=== PATIENT | male | born 1980 | race Caucasian/White ===

== ENCOUNTER 2016-06-23 19:39 | Emergency (ER) | payer MEDICAID ==
[~2016-06-23] VITALS: Ht 185.4 cm; Wt 81.6 kg
[2016-06-23 20:58] LABS: Basophils # (auto) 0 uL; Basophils % (auto) 0.4 % (0.0-2.0); Eosinophils # (auto) 0 uL; Eosinophils % (auto) 0.3 % (0.0-7.0); Hematocrit 41.4 % (41.0-53.0); Hemoglobin 14.1 g/dL (13.5-17.5); Lymphocytes # (auto) 1.9 uL; Lymphocytes % (auto) 19.8 % (10.0-50.0); Mean Corpuscular Hemoglobin 30.1 pg (28.0-32.0); Mean Corpuscular Volume 88.4 fL (80.0-100.0); Mean Platelet Volume 7.9 fL (7.4-10.4); Monocytes # (auto) 0.9 uL; Monocytes % (auto) 9.1 % (0.0-12.0); Neutrophils # (auto) 6.6 uL; Neutrophils % (auto) 70.4 % (37.0-80.0); Platelet Count (auto) 268 10^3/uL (140-450); Red Cell Distribution Width 12.8 % (11.6-16.0); White Blood Cell 9.4 10^3/uL (4.4-10.8)
[2016-06-23 21:19] LABS: Albumin 4.1 g/dL (3.4-5.0); BUN/Creatinine Ratio 25.5; Bilirubin, Total 1.3 mg/dL (0.2-1.0); Calcium 9.4 mg/dL (8.5-10.1); Potassium 3.2 mmol/L (3.5-5.1); Total Protein 8.1 g/dL (6.4-8.2)
[2016-06-24] MEDS ORDERED: TETANUS-DIPTH-ACEL PERTUSSIS 0.5ML SYRG IM ONE (05:15)
[2016-06-24] MEDS ORDERED: SULFAMETHOX W/TRIMETH(800/160MG) DS TAB PO ONE (05:15)
[2016-06-24 05:59] VITALS: BP 136/76
[2016-06-24] MEDS ORDERED: ONDANSETRON HCL 4 MG/2 ML VIAL ONE (08:35)
== END 2016-06-24 08:20 | disposition home or self-care (01) ==
LOC: ER 19:53
DX: L03.115 Cellulitis of right lower limb (principal); S90.414A Abrasion, right lesser toe(s), initial encounter; X58.XXXA Exposure to other specified factors, initial encounter; Y93.89 Activity, other specified; Y99.8 Other external cause status; Y92.89 Other specified places as the place of occurrence of the external cause
CPT/HCPCS: 36415; 51702; 73502; 73610; 73620; 80053; 85025; 87040; 90471; 90715; 94761; 99285; J2405; J7030

== ENCOUNTER 2016-11-26 10:05 | Emergency (ER) | payer MEDICAID ==
[~2016-11-26] VITALS: Ht 182.9 cm; Wt 90.7 kg
[2016-11-26 10:18] VITALS: BP 117/67
[2016-11-26 11:43] LABS: Basophils # (auto) 0.1 uL; Basophils % (auto) 1.3 % (0.0-2.0); CONDITION Y; Eosinophils # (auto) 0.1 uL; Eosinophils % (auto) 1.4 % (0.0-7.0); Hematocrit 39.1 % (41.0-53.0); Hemoglobin 13.7 g/dL (13.5-17.5); Lymphocytes # (auto) 1.8 uL; Lymphocytes % (auto) 22.8 % (10.0-50.0); Mean Corpuscular Hemoglobin 31.4 pg (28.0-32.0); Mean Corpuscular Hgb Conc. 35.1 g/dL (32.0-36.0); Mean Corpuscular Volume 89.5 fL (80.0-100.0); Mean Platelet Volume 8.5 fL (7.4-10.4); Monocytes # (auto) 0.7 uL; Monocytes % (auto) 9.6 % (0.0-12.0); Neutrophils % (auto) 64.9 % (37.0-80.0); Platelet Count (auto) 229 10^3/uL (140-450); Red Cell Distribution Width 12.4 % (11.6-16.0); White Blood Cell 7.7 10^3/uL (4.4-10.8)
[2016-11-26 12:08] LABS: Albumin 3.5 g/dL (3.4-5.0); BUN/Creatinine Ratio 16.9; Calcium 8.8 mg/dL (8.5-10.1); Potassium 3.2 mmol/L (3.5-5.1); Total Protein 7.5 g/dL (6.4-8.2)
== END 2016-11-26 16:08 | disposition left against medical advice (07) ==
LOC: ER 10:14
DX: S91.301A Unspecified open wound, right foot, initial encounter (principal); Z53.21 Procedure and treatment not carried out due to patient leaving prior to being seen by health care provider; X58.XXXA Exposure to other specified factors, initial encounter; Y93.89 Activity, other specified; Y92.89 Other specified places as the place of occurrence of the external cause; Y99.8 Other external cause status
CPT/HCPCS: 36415; 73110; 73630; 80053; 85025

== ENCOUNTER 2016-11-26 22:17 | Inpatient (IN) | payer MEDICAID ==
[~2016-11-26] VITALS: Ht 185.4 cm; Wt 96.7 kg
[2016-11-27] MEDS ORDERED: SODIUM CHLORIDE 0.9% 1,000 ML IV ONE (05:05)
[2016-11-27] MEDS ORDERED: cefTRIAXone 1GM/50ML D5W 50 ML IV ONE (05:15)
[2016-11-27] MEDS ORDERED: VANCOMYCIN 1GM/250ML D5W 250 ML IV ONE (05:15)
[2016-11-27 06:35] LABS: INR 0.94 (0.9-1.15); Partial Thromboplastin Time 27.4 sec (22.64-33.71); Prothrombin Time 10.2 sec (9.37-12.3)
[2016-11-27 08:54] LABS: Basophils # (auto) 0 uL; Basophils % (auto) 0.5 % (0.0-2.0); CONDITION Y; Eosinophils # (auto) 0.2 uL; Eosinophils % (auto) 2.7 % (0.0-7.0); Hemoglobin 13.1 g/dL (13.5-17.5); Lymphocytes % (auto) 23.7 % (10.0-50.0); Mean Corpuscular Hemoglobin 31.1 pg (28.0-32.0); Mean Corpuscular Hgb Conc. 34.5 g/dL (32.0-36.0); Mean Platelet Volume 9.7 fL (7.4-10.4); Monocytes # (auto) 0.7 uL; Monocytes % (auto) 8.9 % (0.0-12.0); Neutrophils # (auto) 5.3 uL; Neutrophils % (auto) 64.2 % (37.0-80.0); Platelet Count (auto) 220 10^3/uL (140-450); Red Cell Distribution Width 12.9 % (11.6-16.0); White Blood Cell 8.3 10^3/uL (4.4-10.8)
[2016-11-27 08:59] LABS: Urine Bilirubin Negative (Negative); Urine Blood Negative /uL (Negative); Urine Color Yellow (Yellow); Urine Glucose Normal (Normal); Urine Ketone Negative (Negative); Urine Mucus FEW (None Seen); Urine Nitrite Negative (Negative); Urine RBC <1 /hpf (0 - 3); Urine Squamous Epithelial Cell FEW /hpf (<5); Urine Urobilinogen Normal (Negative)
[2016-11-27 09:17] LABS: Albumin 3.3 g/dL (3.4-5.0); BUN/Creatinine Ratio 19.2; Bilirubin, Total 0.3 mg/dL (0.2-1.0); Calcium 8.6 mg/dL (8.5-10.1); Potassium 3.5 mmol/L (3.5-5.1)
[2016-11-27] MEDS ORDERED: MORPHINE SULF INJ 2 MG/ML SYRINGE 1ML IV PRN (10:15)
[2016-11-27] MEDS ORDERED: ACETAMINOPHEN 500 MG TAB PO PRN (10:15)
[2016-11-27] MEDS ORDERED: LORazepam 0.5 MG TAB PO PRN (10:15)
[2016-11-27] MEDS ORDERED: VANCOMYCIN PER PHARMACY 0 MG IV SCH (10:15)
[2016-11-27] MEDS ORDERED: LACTULOSE 20Gm/30ML SOLN PO PRN (10:15)
[2016-11-27] MEDS ORDERED: NITROGLYCERIN 0.4 MG SL TAB SL PRN (10:15)
[2016-11-27] MEDS ORDERED: PIPERACILLIN-TAZOB 3.375GM 100 ML IV ONE (10:15)
[2016-11-27] MEDS: FAMOTIDINE 20 MG TAB PO SCH ×2 (10:33→22:40)
[2016-11-27] MEDS: SODIUM CHLORIDE 0.9% 1,000 ML IV SCH ×2 (10:33→20:06)
[2016-11-27] MEDS: ENOXAPARIN SOD 40 MG/0.4 ML SYRINGE SC SCH (10:33)
[2016-11-27 11:42] VITALS: BP 115/70
[2016-11-27] MEDS: MORPHINE SULFATE 4 MG/ML SYRG IV PRN (12:59)
[2016-11-27 16:31] VITALS: BP 148/78
[2016-11-27] MEDS: PIPERACILLIN-TAZOB 3.375GM 100 ML IV SCH ×2 (16:46→22:40)
[2016-11-27] MEDS: VANCOMYCIN 1,250 MG in D5W 5% 250 ML IV SCH (19:00)
[2016-11-27 22:00] VITALS: BP 117/68
[2016-11-28] MEDS: PIPERACILLIN-TAZOB 3.375GM 100 ML IV SCH ×4 (03:35→22:26)
[2016-11-28] MEDS: SODIUM CHLORIDE 0.9% 1,000 ML IV SCH ×2 (04:04→16:06)
[2016-11-28 05:00] VITALS: BP 117/64
[2016-11-28 05:53] LABS: Basophils # (auto) 0.1 uL; Basophils % (auto) 0.9 % (0.0-2.0); CONDITION Y; Eosinophils # (auto) 0.2 uL; Eosinophils % (auto) 2.5 % (0.0-7.0); Hematocrit 37.9 % (41.0-53.0); Lymphocytes # (auto) 1.6 uL; Lymphocytes % (auto) 23.8 % (10.0-50.0); Mean Corpuscular Hemoglobin 31.4 pg (28.0-32.0); Mean Corpuscular Hgb Conc. 34.5 g/dL (32.0-36.0); Mean Platelet Volume 8.8 fL (7.4-10.4); Monocytes # (auto) 0.5 uL; Monocytes % (auto) 8.4 % (0.0-12.0); Neutrophils # (auto) 4.2 uL; Neutrophils % (auto) 64.4 % (37.0-80.0); Platelet Count (auto) 230 10^3/uL (140-450); White Blood Cell 6.6 10^3/uL (4.4-10.8)
[2016-11-28 06:22] LABS: Potassium 3.6 mmol/L (3.5-5.1)
[2016-11-28 06:27] LABS: Albumin 2.8 g/dL (3.4-5.0); BUN/Creatinine Ratio 15.4; Calcium 8.4 mg/dL (8.5-10.1)
[2016-11-28 06:29] LABS: Bilirubin, Total 0.3 mg/dL (0.2-1.0)
[2016-11-28] MEDS: VANCOMYCIN 1,250 MG in D5W 5% 250 ML IV SCH ×2 (06:51→18:44)
[2016-11-28 09:00] VITALS: BP 147/85
[2016-11-28] MEDS ORDERED: ROPIVACAINE 0.5% (5MG/ML) 20ML AMPULE IJ ONE (09:43)
[2016-11-28] MEDS ORDERED: ceFAZolin 1GM VL ONE (09:43)
[2016-11-28] MEDS ORDERED: BUPIVACAINE 0.75% INJ 10ML MPV SDV IJ ONE (09:43)
[2016-11-28] MEDS: FAMOTIDINE 20 MG TAB PO SCH ×3 (10:00→23:23)
[2016-11-28] MEDS: ENOXAPARIN SOD 40 MG/0.4 ML SYRINGE SC SCH (10:00)
[2016-11-28] MEDS ORDERED: fentaNYL CITRATE 100 MCG/2 ML VL ONE (10:08)
[2016-11-28] MEDS ORDERED: MIDAZOLAM HCL 1MG/1ML-2 ML VIAL ONE (10:08)
[2016-11-28] MEDS ORDERED: DEXAMETHASONE SOD PHOS 10MG/1ML VIAL INJ ONE (10:09)
[2016-11-28] MEDS ORDERED: PROPOFOL 10 MG/ML 20 ML IV ONE (10:09)
[2016-11-28 13:00] VITALS: BP 128/70
[2016-11-28] MEDS: MORPHINE SULFATE 4 MG/ML SYRG IV PRN ×3 (13:44→23:25)
[2016-11-28] MEDS ORDERED: ASCORBIC ACID 500 MG TAB PO ONE (14:00)
[2016-11-28] MEDS ORDERED: MULTIPLE VITAMINS W/ MINERALS TAB PO ONE (14:00)
[2016-11-28 17:00] VITALS: BP 126/63
[2016-11-28] MEDS: HYDROcodone-ACET 5/325MG TAB PO PRN (19:53)
[2016-11-28 21:19] VITALS: BP 134/63
[2016-11-29] MEDS: TEMAZEPAM 15 MG CAP PO PRN ×2 (00:45→22:23)
[2016-11-29] MEDS: SODIUM CHLORIDE 0.9% 1,000 ML IV SCH ×3 (02:24→22:06)
[2016-11-29] MEDS: PIPERACILLIN-TAZOB 3.375GM 100 ML IV SCH ×5 (03:26→22:19)
[2016-11-29 05:02] VITALS: BP 126/84
[2016-11-29] MEDS: VANCOMYCIN 1,250 MG in D5W 5% 250 ML IV SCH ×3 (06:57→23:30)
[2016-11-29 08:30] VITALS: BP 130/75
[2016-11-29] MEDS: MULTIPLE VITAMINS W/ MINERALS TAB PO SCH (09:16)
[2016-11-29] MEDS: ASCORBIC ACID 500 MG TAB PO SCH (09:16)
[2016-11-29] MEDS: FAMOTIDINE 20 MG TAB PO SCH ×2 (09:16→22:19)
[2016-11-29] MEDS: ENOXAPARIN SOD 40 MG/0.4 ML SYRINGE SC SCH (09:16)
[2016-11-29] MEDS: MORPHINE SULFATE 4 MG/ML SYRG IV PRN ×3 (09:16→20:18)
[2016-11-29 12:14] VITALS: BP 130/73
[2016-11-29] MEDS: HYDROcodone-ACET 5/325MG TAB PO PRN (16:36)
[2016-11-29 16:52] VITALS: BP 141/67
[2016-11-29] MEDS: PROMETHAZINE HCL 25 MG/ML 1ML IV PRN (20:18)
[2016-11-29 23:04] VITALS: BP 142/80
[2016-11-30] MEDS: MORPHINE SULFATE 4 MG/ML SYRG IV PRN ×4 (03:03→22:14)
[2016-11-30] MEDS: PROMETHAZINE HCL 25 MG/ML 1ML IV PRN ×4 (03:03→22:14)
[2016-11-30] MEDS: PIPERACILLIN-TAZOB 3.375GM 100 ML IV SCH ×4 (03:38→20:53)
[2016-11-30 05:45] VITALS: BP 157/86
[2016-11-30] MEDS: VANCOMYCIN 1,250 MG in D5W 5% 250 ML IV SCH (06:51)
[2016-11-30 08:00] VITALS: BP 157/98
[2016-11-30] MEDS: FAMOTIDINE 20 MG TAB PO SCH ×2 (11:37→22:04)
[2016-11-30] MEDS: ENOXAPARIN SOD 40 MG/0.4 ML SYRINGE SC SCH (11:37)
[2016-11-30] MEDS: MULTIPLE VITAMINS W/ MINERALS TAB PO SCH (11:37)
[2016-11-30] MEDS: ASCORBIC ACID 500 MG TAB PO SCH (11:37)
[2016-11-30] MEDS: SODIUM CHLORIDE 0.9% 1,000 ML IV SCH ×2 (11:38→17:03)
[2016-11-30 12:00] VITALS: BP 143/90
[2016-11-30] MEDS ORDERED: LIDOCAINE 1% HCL (LOCAL ANESTH.) INJ 20ML MDV ID ONE (14:15)
[2016-11-30] MEDS: VANCOMYCIN 1GM/250ML D5W 250 ML IV SCH ×2 (15:22→23:21)
[2016-11-30 16:30] VITALS: BP 147/90
[2016-11-30] MEDS ORDERED: SILVER SULFADIAZINE 1 % TOPICAL CREAM 50GM TOP SCH (17:13)
[2016-11-30 22:00] VITALS: BP 140/78
[2016-11-30] MEDS: SODIUM CHLOR 0.9% PF (SALINE LOCK) 10ML VIAL IV SCH (22:04)
[2016-12-01] MEDS: PIPERACILLIN-TAZOB 3.375GM 100 ML IV SCH ×4 (03:35→21:13)
[2016-12-01] MEDS: PROMETHAZINE HCL 25 MG/ML 1ML IV PRN ×5 (03:50→23:05)
[2016-12-01] MEDS: MORPHINE SULFATE 4 MG/ML SYRG IV PRN ×5 (03:50→23:04)
[2016-12-01] MEDS: SODIUM CHLORIDE 0.9% 1,000 ML IV SCH ×2 (04:06→14:37)
[2016-12-01 05:00] VITALS: BP 131/76
[2016-12-01] MEDS: VANCOMYCIN 1GM/250ML D5W 250 ML IV SCH ×3 (06:26→23:04)
[2016-12-01 06:39] LABS: Potassium 3.8 mmol/L (3.5-5.1)
[2016-12-01 06:49] LABS: BUN/Creatinine Ratio 17.5; Calcium 9.6 mg/dL (8.5-10.1)
[2016-12-01] MEDS: SODIUM CHLOR 0.9% PF (SALINE LOCK) 10ML VIAL IV SCH ×2 (08:31→21:13)
[2016-12-01] MEDS: FAMOTIDINE 20 MG TAB PO SCH ×2 (08:31→21:13)
[2016-12-01] MEDS: ASCORBIC ACID 500 MG TAB PO SCH (08:31)
[2016-12-01] MEDS: MULTIPLE VITAMINS W/ MINERALS TAB PO SCH (08:31)
[2016-12-01] MEDS: ENOXAPARIN SOD 40 MG/0.4 ML SYRINGE SC SCH (08:36)
[2016-12-01 09:00] VITALS: BP 132/80
[2016-12-01 13:00] VITALS: BP 130/74
[2016-12-01 17:00] VITALS: BP 119/68
[2016-12-01] MEDS: TEMAZEPAM 15 MG CAP PO PRN (21:13)
[2016-12-01 21:30] VITALS: BP 135/70
[2016-12-02] MEDS: SODIUM CHLORIDE 0.9% 1,000 ML IV SCH ×2 (00:06→09:32)
[2016-12-02] MEDS: PIPERACILLIN-TAZOB 3.375GM 100 ML IV SCH ×2 (03:54→09:29)
[2016-12-02] MEDS: MORPHINE SULFATE 4 MG/ML SYRG IV PRN ×3 (04:00→13:43)
[2016-12-02] MEDS: PROMETHAZINE HCL 25 MG/ML 1ML IV PRN ×3 (04:00→13:42)
[2016-12-02 05:20] VITALS: BP 110/65
[2016-12-02] MEDS: VANCOMYCIN 1GM/250ML D5W 250 ML IV SCH ×2 (06:31→14:58)
[2016-12-02 09:00] VITALS: BP 118/70
[2016-12-02] MEDS: ASCORBIC ACID 500 MG TAB PO SCH (09:29)
[2016-12-02] MEDS: FAMOTIDINE 20 MG TAB PO SCH (09:29)
[2016-12-02] MEDS: MULTIPLE VITAMINS W/ MINERALS TAB PO SCH (09:29)
[2016-12-02] MEDS: ENOXAPARIN SOD 40 MG/0.4 ML SYRINGE SC SCH (09:32)
[2016-12-02] MEDS: SODIUM CHLOR 0.9% PF (SALINE LOCK) 10ML VIAL IV SCH (09:32)
[2016-12-02 13:00] VITALS: BP 123/71
[2016-12-02 16:34] VITALS: BP 126/71
== END 2016-12-02 17:00 | disposition home health service (06) | DRG 844 ==
LOC: ER 22:28 → TELE 22:29 → TELE-E-ADS 11-27 11:23 → TELE-EAST 11-27 12:47
PROVIDERS: ADMIT Internal Medicine; ATTEND Internal Medicine
PROC: 0J9Q0ZZ Drainage of Right Foot Subcutaneous Tissue and Fascia, Open Approach (ICD-10-PCS; 2016-11-28)
PROC: 0JBQ0ZZ Excision of Right Foot Subcutaneous Tissue and Fascia, Open Approach (ICD-10-PCS; principal; 2016-11-28 10:16)
PROC: 02HV33Z Insertion of Infusion Device into Superior Vena Cava, Percutaneous Approach (ICD-10-PCS; 2016-11-30)
DX: T25.021A Burn of unspecified degree of right foot, initial encounter (principal); S24 Injury of nerves and spinal cord at thorax level; L02.611 Cutaneous abscess of right foot; L03.115 Cellulitis of right lower limb; N39.0 Urinary tract infection, site not specified; B95.62 Methicillin resistant Staphylococcus aureus infection as the cause of diseases classified elsewhere; K59.00 Constipation, unspecified; X08.8XXA Exposure to other specified smoke, fire and flames, initial encounter; G47.00 Insomnia, unspecified; X58.XXXA Exposure to other specified factors, initial encounter; G95.9 Disease of spinal cord, unspecified; L97.519 Non-pressure chronic ulcer of other part of right foot with unspecified severity; D63.8 Anemia in other chronic diseases classified elsewhere; F41.9 Anxiety disorder, unspecified; F17.210 Nicotine dependence, cigarettes, uncomplicated; Z82.49 Family history of ischemic heart disease and other diseases of the circulatory system; Z87.828 Personal history of other (healed) physical injury and trauma; Z98.890 Other specified postprocedural states; Y93.89 Activity, other specified; Y92.89 Other specified places as the place of occurrence of the external cause; Y99.8 Other external cause status
CPT/HCPCS: 36415; 36569; 71010; 71020; 73630; 73700; 80048; 80053; 80202; 81001; 85025; 85610; 85652; 85730; 87040; 87070; 87075; 87077; 87081; 87086; 87186; 87205; 88304; 93005; 93926; 96365; 96367; J0690; J0696; J1100; J2250; J2543; J2704; J3490; J7060

== ENCOUNTER 2017-06-07 16:15 | Emergency (ER) | payer MEDICAID ==
[~2017-06-07] VITALS: Ht 185.4 cm; Wt 90.7 kg
[2017-06-07 16:43] VITALS: BP 128/85
[2017-06-07] MEDS ORDERED: SODIUM CHLORIDE 0.9% 1,000 ML IV ONE (19:15)
[2017-06-07 20:00] LABS: Basophils # (auto) 0.1 uL; Eosinophils # (auto) 0.2 uL; Hematocrit 47.7 % (41.0-53.0); Hemoglobin 16.2 g/dL (13.5-17.5); Lymphocytes # (auto) 2.8 uL; Lymphocytes % (auto) 32.6 % (10.0-50.0); Mean Corpuscular Hemoglobin 30.6 pg (28.0-32.0); Mean Corpuscular Hgb Conc. 33.9 g/dL (32.0-36.0); Mean Corpuscular Volume 90.3 fL (80.0-100.0); Monocytes # (auto) 0.9 uL; Monocytes % (auto) 10.2 % (0.0-12.0); Neutrophils # (auto) 4.6 uL; Neutrophils % (auto) 54.2 % (37.0-80.0); Nucleated Red Blood Cells % 0.5 %; Platelet Count (auto) 312 10^3/uL (140-450); Red Blood Cells 5.29 10^6/uL (4.5-5.90); Red Cell Distribution Width 13.1 % (11.8-14.3); White Blood Cell 8.4 10^3/uL (4.4-10.8)
[2017-06-07 20:25] LABS: Albumin 3.6 g/dL (3.4-5.0); Bilirubin, Total 0.3 mg/dL (0.2-1.0); Calcium 9.1 mg/dL (8.5-10.1); Potassium 3.8 mmol/L (3.5-5.1); Total Protein 7.4 g/dL (6.4-8.2)
[2017-06-07] MEDS ORDERED: cefTRIAXone 1GM/10ml IVPUSH 10 ML IV ONE (20:45)
== END 2017-06-07 21:20 | disposition home or self-care (01) ==
LOC: ER 16:19
DX: L03.115 Cellulitis of right lower limb (principal); M19.071 Primary osteoarthritis, right ankle and foot
CPT/HCPCS: 36415; 73630; 73700; 80053; 85025; 96361; 96374; 99285; J7030

== ENCOUNTER 2019-07-29 14:19 | Inpatient (IN) | payer MEDICARE, MEDICAID ==
[~2019-07-29] VITALS: Ht 185.4 cm; Wt 93.5 kg
[~2019-07-29 14:19] MED LIST: LEVO750T2 PO
[2019-07-29] MEDS ORDERED: SODIUM CHLORIDE 0.9% 1,000 ML IV ONE (15:38)
[2019-07-29] MEDS ORDERED: cefTRIAXone 1GM/50ML D5W 50 ML IV ONE (15:45)
[2019-07-29 16:23] LABS: Urine Bacteria MOD /hpf (None Seen); Urine Blood TRACE /uL (Negative); Urine Mucus FEW (None Seen); Urine WBC 276 /hpf (0 - 3)
[2019-07-29 16:52] LABS: Basophils # (auto) 0.1 10 ^3/uL (0-0.2); Basophils % (auto) 0.8 % (0.0-2.0); Eosinophils # (auto) 0.1 10 ^3/uL (0-0.8); Hematocrit 41.1 % (41.0-53.0); Hemoglobin 13.8 g/dL (13.5-17.5); Lymphocytes % (auto) 10.1 % (10.0-50.0); Mean Corpuscular Hemoglobin 29.8 pg (28.0-32.0); Mean Corpuscular Hgb Conc. 33.6 g/dL (32.0-36.0); Mean Corpuscular Volume 88.6 fL (80.0-100.0); Neutrophils # (auto) 8.1 10 ^3/uL (1.6-8.6); Neutrophils % (auto) 78.1 % (37.0-80.0); Nucleated Red Blood Cells % 0.2 %; Platelet Count (auto) 312 10^3/uL (140-450); Red Blood Cells 4.64 10^6/uL (4.5-5.90); Red Cell Distribution Width 12.8 % (11.8-14.3); White Blood Cell 10.3 10^3/uL (4.4-10.8)
[2019-07-29 17:08] LABS: Albumin 2.8 g/dL (3.4-5.0); Calcium 8.7 mg/dL (8.5-10.1); Magnesium 2.6 mg/dL (1.6-2.6); Potassium 3.5 mmol/L (3.5-5.1)
[2019-07-29 17:09] LABS: INR 1.07 (0.9-1.15); Partial Thromboplastin Time 34.2 sec (23.64-32.05)
[2019-07-29 17:11] LABS: BUN/Creatinine Ratio 13.3; Bilirubin, Total 0.5 mg/dL (0.2-1.0); Total Protein 7.6 g/dL (6.4-8.2)
[2019-07-29] MEDS ORDERED: NITROGLYCERIN 0.4 MG SL TAB SL PRN (18:00)
[2019-07-29] MEDS ORDERED: HYDROcodone-ACET 5/325MG TAB PO PRN (18:00)
[2019-07-29] MEDS ORDERED: ONDANSETRON HCL 4 MG/2 ML VIAL IV PRN (18:00)
[2019-07-29] MEDS ORDERED: MORPHINE SULF INJ 2 MG/ML SYRINGE 1ML IV PRN (18:00)
[2019-07-29] MEDS ORDERED: ACETAMINOPHEN 500 MG TAB PO PRN (18:00)
[2019-07-29 18:07] LABS: Amphetamine Screen, Urine POSITIVE (NEGATIVE); Barbiturate Scree,Urine NEGATIVE (NEGATIVE); Benzodiazephine Screen, Urine NEGATIVE (NEGATIVE); Cannabinoid Screen, Urine NEGATIVE (NEGATIVE); Cocaine Screen, Urine NEGATIVE (NEGATIVE); Phencyclidine Screen, Urine NEGATIVE (NEGATIVE)
[2019-07-29 18:15] LABS: Opiate Scree,Urine NEGATIVE (NEGATIVE)
[2019-07-29] MEDS: SODIUM CHLORIDE 0.9% 1,000 ML IV SCH (18:21)
--- NOTE | 2019-07-29 20:30 | NUR ---
[facility] Patient oriented to Glenroy Mulligan, primary RN, unit, room, bed, and unit policies regarding patient care and visiting hours. Patient weighed by bedscale and encouraged to call if they need something. All questions and concerns addressed, patient verbalized understanding.
[2019-07-29 22:00] VITALS: BP 116/80
[2019-07-29] MEDS: CLINDAMYCIN 300MG IV 50 ML IV SCH (22:00)
[2019-07-30] MEDS: MORPHINE SULF INJ 2 MG/ML SYRINGE 1ML IV PRN ×5 (01:50→22:57)
--- NOTE | 2019-07-30 01:55 | NUR ---
PAGED The patient states that he has been experiencing a constant headache for the past 4 days. He reports that he has taken Tylenol but it did not improve his pain. He states that the norco that was given to him earlier did not help either. Notified MD Maki about the patient's symptoms. New order for Imitrex 50 mg once has been received.
[2019-07-30] MEDS ORDERED: SUMAtriptan SUCCINATE 25 MG TAB PO ONE (02:00)
[2019-07-30 05:00] VITALS: BP 148/96
[2019-07-30] MEDS: CLINDAMYCIN 300MG IV 50 ML IV SCH ×3 (06:00→22:49)
[2019-07-30 06:45] LABS: Basophils # (auto) 0.1 10 ^3/uL (0-0.2); Basophils % (auto) 0.7 % (0.0-2.0); Eosinophils # (auto) 0.1 10 ^3/uL (0-0.8); Eosinophils % (auto) 1.6 % (0.0-7.0); Hematocrit 38.2 % (41.0-53.0); Hemoglobin 13.1 g/dL (13.5-17.5); Lymphocytes # (auto) 1.5 10 ^3/uL (0.4-5.4); Lymphocytes % (auto) 18.5 % (10.0-50.0); Mean Corpuscular Hemoglobin 30.5 pg (28.0-32.0); Mean Corpuscular Hgb Conc. 34.4 g/dL (32.0-36.0); Mean Corpuscular Volume 88.7 fL (80.0-100.0); Monocytes # (auto) 0.8 10 ^3/uL (0-1.3); Monocytes % (auto) 9.2 % (0.0-12.0); Neutrophils # (auto) 5.9 10 ^3/uL (1.6-8.6); Nucleated Red Blood Cells % 0.1 %; Platelet Count (auto) 283 10^3/uL (140-450); Red Cell Distribution Width 12.6 % (11.8-14.3); White Blood Cell 8.4 10^3/uL (4.4-10.8)
[2019-07-30 07:05] LABS: Potassium 3.7 mmol/L (3.5-5.1)
[2019-07-30 07:13] LABS: BUN/Creatinine Ratio 14.8; Calcium 8.1 mg/dL (8.5-10.1)
--- NOTE | 2019-07-30 07:40 | NUR ---
Opening Note Patient laying comfortably in bed with HOB at 15 degrees. No signs or symptoms SOB or distress. Discussed POC with patient, patient understood. Safety precautions in place, bed at lowest position, call light within reach. Will continue to monitor.
[2019-07-30 08:00] VITALS: BP 142/85
[2019-07-30] MEDS: FAMOTIDINE 20 MG TAB PO SCH (09:30)
[2019-07-30] MEDS: cefTRIAXone 1GM/50ML D5W 50 ML IV SCH (09:30)
--- NOTE | 2019-07-30 10:50 | NUR ---
WOUND CARE NOTE: WOUND CARE TEAM IN TO SEE PATIENT PER WOUND CARE REQUEST. PATIENT ADMITTED TO [facility] FOR RIGHT FOOT CELLULITIS. BEDSIDE NURSE NOTED MULTIPLE WOUNDS TO PATIENT'S RIGHT FOOT UPON ADMISSION. PHOTOGRAPHS TAKEN AT THAT TIME FOR REFERENCE. PATIENT IS PARALYZED IN RIGHT LEG. PATIENT HAS A VEGA SCORE OF 21. PATIENT HAS PRESSURE INJURIES TO RIGHT GREAT TOE, RIGHT FIFTH TOE, RIGHT LATERAL ANKLE, AND RIGHT LATERAL PLANTAR ASPECT OF FOOT. GREEN TINGED DISCHARGE NOTED TO RIGHT LATERAL PLANTAR WOUND. BEDSIDE NURSE ADVISED WOUND CULTURE OBTAINED WHILE PATIENT WAS IN ER. WOUNDS CLEANSED WITH NORMAL SALINE, PATTED DRY WITH STERILE GAUZE. SILVASORB OINTMENT APPLIED TO WOUNDS, COVERED WITH SILVER IMPREGNATED OPTIFOAM, COVERED BY KERLIX WRAP. RECOMMEND: BID/PRN DRESSING CHANGE WITH SILVASORB OINTMENT, SILVER IMPREGNATED OPTIFOAM AND KERLIX WRAP. PRESSURE REDISTRIBUTION UTILIZING PILLOWS AND WEDGES. SKIN/WOUND CARE PLAN. CONTINUED MONITORING BY WOUND CARE TEAM. Addendum: 07/30/19 at 1529 by CASANDRA DANIEL RN RN Amended: Links added.
[2019-07-30] MEDS: SODIUM CHLORIDE 0.9% 1,000 ML IV SCH (11:39)
[2019-07-30 12:00] VITALS: BP 122/63
[2019-07-30 12:21] LABS: Hepatitis B Surface Antibody Negative
--- NOTE | 2019-07-30 14:02 | NUR ---
Nutrition Assessment Notes Please refer to link for full assessment notes. Est Energy needs: 2138-1631 kcals (20-23 kcal/kgBW) Est Protein needs: 116-146 gms/day (1.2-1.5 gm/kgBW) d/t wound Will continue to monitor and reassess prn. Addendum: 07/30/19 at [address] Amended: Links added.
--- NOTE | 2019-07-30 14:13 | NUR ---
Received Social Service Consult regarding pt being homeless. Pt states prior to admission he was residing with his girlfriend. However, he also stays with his mother and does his laundry and showers there. Pt states he can stay there after discharge if he requires Home Health or further care. Addendum: 07/30/19 at 1418 by PETER MCALLISTER SS Amended: Links added.
[2019-07-30 16:49] VITALS: BP 125/72
[2019-07-30 17:29] LABS: Hepatitis B Surface Antigen Negative (Negative)
[2019-07-30 17:36] LABS: Hepatitis B Core Total AB Negative
[2019-07-30 17:37] LABS: Hepatitis C Antibody Negative (Negative)
[2019-07-30 22:00] VITALS: BP 127/72
[2019-07-31] MEDS: MORPHINE SULF INJ 2 MG/ML SYRINGE 1ML IV PRN ×2 (03:32→18:45)
[2019-07-31 04:45] VITALS: BP 121/66
[2019-07-31] MEDS: CLINDAMYCIN 300MG IV 50 ML IV SCH (05:34)
[2019-07-31] MEDS: SODIUM CHLORIDE 0.9% 1,000 ML IV SCH (05:34)
--- NOTE | 2019-07-31 05:54 | NUR ---
Dressing on left foot changed Old dressing removed. Silvasorb ointment placed on open wound areas, covered with silver impregnated Optifoam and then wrapped with Kerlix. Pt tolerated well and states no discomfort at this time. Addendum: 08/01/19 at 0648 by SUYAPA JACOB RN Dressing on right foot
--- NOTE | 2019-07-31 07:15 | NUR ---
Opening Shift Note Assumed care of patient, awake,alert, No S/S of distress/SOB or pain. Instructed on POC and to call for assist PRN, will continue to monitor for changes Q1hr and PRN and turning q 2 hours.
[2019-07-31 08:58] VITALS: BP 133/83
[2019-07-31] MEDS: cefTRIAXone 1GM/50ML D5W 50 ML IV SCH (10:10)
[2019-07-31] MEDS: FAMOTIDINE 20 MG TAB PO SCH (10:11)
[2019-07-31] MEDS ORDERED: VANCOMYCIN PER PHARMACY 0 MG IV SCH (10:45)
--- NOTE | 2019-07-31 11:00 | NUR ---
MD VISIT DR. CINTRON HERE TO SEE AND EXAMINED PATIENT,AWAITING FOR BONE SCAN RESULT.
[2019-07-31] MEDS: VANCOMYCIN 1GM/250ML 250 ML IV SCH ×2 (11:57→22:05)
[2019-07-31 12:37] VITALS: BP 143/75
[2019-07-31 16:47] VITALS: BP 113/67
--- NOTE | 2019-07-31 18:45 | NUR ---
C/O PAIN RIGHT FOOT /RIGHT LEG,MEDICATED WITH MORPHINE 1MG IVP SEE eMAR
--- NOTE | 2019-07-31 18:50 | NUR ---
DRESSING TO RIGHT FOOT DONE,WOUND CLEANSE WITH WOUND CLEANSER, APPLIED SILVASORB OINTMENT,COVERED WITH OPTIFOAM AND WRAP WITH KERLIX.
[2019-07-31 20:19] LABS: Hepatitis A Total Antibody Positive
[2019-07-31 21:57] VITALS: BP 133/81
[2019-08-01] MEDS: MORPHINE SULF INJ 2 MG/ML SYRINGE 1ML IV PRN ×2 (01:21→06:46)
[2019-08-01 05:00] VITALS: BP 135/75
--- NOTE | 2019-08-01 07:15 | NUR ---
Opening Shift Note Assumed care of patient, asleep easily arousable, No S/S of distress/SOB or pain. Instructed on POC and to call for assist PRN, will continue to monitor for changes Q1hr and PRN and turning q 2 hours.
[2019-08-01 07:41] LABS: BUN/Creatinine Ratio 19.2; Calcium 9.1 mg/dL (8.5-10.1); Potassium 3.8 mmol/L (3.5-5.1)
[2019-08-01 08:00] VITALS: BP 133/87
[2019-08-01] MEDS: VANCOMYCIN 1GM/250ML 250 ML IV SCH (08:27)
[2019-08-01] MEDS: cefTRIAXone 1GM/50ML D5W 50 ML IV SCH (10:25)
[2019-08-01] MEDS: FAMOTIDINE 20 MG TAB PO SCH (10:25)
[2019-08-01 12:00] VITALS: BP 125/67
--- NOTE | 2019-08-01 12:00 | NUR ---
MD VISIT DR. CINTRON HERE TO SEE AND EXAMINED PATIENT RECEIVED ORDER FOR DISCHARGE.
[2019-08-01] MEDS ORDERED: CIPR-173 PO (12:01)
[2019-08-01] MEDS ORDERED: LINE1TAB6 PO (12:01)
--- NOTE | 2019-08-01 15:54 | NUR ---
re-assessment Per consult [facility] for right foot wound care. Patient has been given a list of medicare providers. Per patient [facility] to provide service. MD order has been sent to [facility]. Per [facility] service will start on 08/02/2019. Patient has been notified. Addendum: 08/01/19 at 1556 by Liudmila Valero Amended: Links added.
[2019-08-01 16:22] VITALS: BP 125/67
[2019-08-01 16:48] VITALS: BP 138/73
--- NOTE | 2019-08-01 17:10 | NUR ---
DISCHARGE PICTURES TAKEN X 4 TO RIGHT FOOT.
--- NOTE | 2019-08-01 17:20 | NUR ---
Discharge instructions given as ordered. Encourage to follow up with PMD AND as instructed. All questions and concerns addressed. Patient verbalized understanding. Medication reconciliation form completed and copy given to patient.IV removed with catheter intact, pressure dressing applied. Patient taken to vehicle via wheelchair with all personal belongings, accompanied by staff and family member. No distress noted at time of departure.
== END 2019-08-01 17:20 | disposition home health service (06) | DRG 603 ==
LOC: EDBD 14:19 → ER 14:19 → OVERFLOW 14:20 → CENTRAL 19:41
PROVIDERS: ADMIT Nurse Practitioner Acute Care; ATTEND Internal Medicine
DX: L03.115 Cellulitis of right lower limb (principal); N30.01 Acute cystitis with hematuria; F15.10 Other stimulant abuse, uncomplicated; I10 Essential (primary) hypertension; I25.2 Old myocardial infarction; S91.101A Unspecified open wound of right great toe without damage to nail, initial encounter; X58.XXXA Exposure to other specified factors, initial encounter; Z82.49 Family history of ischemic heart disease and other diseases of the circulatory system; Z86.14 Personal history of Methicillin resistant Staphylococcus aureus infection; Z87.891 Personal history of nicotine dependence; Y93.89 Activity, other specified; Y92.89 Other specified places as the place of occurrence of the external cause; Y99.8 Other external cause status
CPT/HCPCS: 36415; 71046; 73630; 78315; 80048; 80053; 80307; 81001; 83036; 83735; 85025; 85610; 85652; 85730; 86141; 86703; 86704; 86706; 86708; 86803; 87077; 87081; 87086; 87088; 87186; 87205; 87340; G0378; J0696; J3490